=== PATIENT | male | born 1985 | race Caucasian/White ===

== ENCOUNTER 2016-06-17 20:58 | Inpatient (IN) | payer OTHER ==
[~2016-06-17] VITALS: Ht 172.7 cm; Wt 89.5 kg
[2016-06-17 21:22] VITALS: BP 146/91; PULSE 88; RESP 18; TEMP 97.9; O2SAT 99
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
[2016-06-17 22:05] LABS: AUTOMATED NEUTROPHIL # 11.3 TH/MM3 (1.8-7.7); BASOPHIL % 0.3 % (0.0-2.0); EOSINOPHIL % 0.3 % (0.0-4.0); HEMATOCRIT 46.2 % (39.0-51.0); HEMO FLAGS DIFF FINAL; LYMPHOCYTE # 2.5 TH/MM3 (1.0-4.8); MEAN CELL VOLUME 78.5 FL (80.0-100.0); MEAN CORPUSCULAR HEMOGLOBIN 26.7 PG (27.0-34.0); MEAN CORPUSCULAR HGB CONC 33.9 % (32.0-36.0); MONO % 6.8 % (0.0-8.0); NEUT % 75.6 % (16.0-70.0); PLATELET COUNT 215 TH/MM3 (150-450); RED BLOOD COUNT 5.88 MIL/MM3 (4.50-5.90); RED CELL DISTRIBUTION WIDTH 13.4 % (11.6-17.2); WHITE BLOOD COUNT 14.9 TH/MM3 (4.0-11.0)
[2016-06-17 22:25] LABS: ANION GAP 11 MEQ/L (5-15)
[2016-06-17 22:29] LABS: ALKALINE PHOSPHATASE 88 U/L (45-117); ALT (GPT) 52 U/L (12-78); AST (GOT) 28 U/L (15-37); BICARBONATE 26.3 MEQ/L (21.0-32.0); BLOOD UREA NITROGEN 11 MG/DL (7-18); CHLORIDE 103 MEQ/L (98-107); GLOMERULAR FILTRATION RATE 56 ML/MIN (>89); POTASSIUM 3.6 MEQ/L (3.5-5.1); SODIUM (NA) 140 MEQ/L (136-145); TOTAL BILIRUBIN ADULT 0.9 MG/DL (0.2-1.0)
[2016-06-17 23:08] VITALS: BP 153/82; PULSE 108; RESP 18; O2SAT 99
[2016-06-17 23:12] LABS: AMPHETAMINE, URINE NEG (NEG); BARBITURATES, URINE NEG (NEG); COCAINE, URINE NEG (NEG)
[2016-06-17 23:27] VITALS: BP 152/80; PULSE 93; RESP 16; O2SAT 99
[2016-06-18 01:10] VITALS: BP 119/87; PULSE 99; RESP 18; O2SAT 97
[2016-06-18] MEDS ORDERED: LORazepam 2 MG/ML VIAL ONE (01:28)
[2016-06-18] MEDS ORDERED: HALOPERIDOL LACTATE 5 MG/ML AMP ONE (01:29)
[2016-06-18] MEDS ORDERED: HALOPERIDOL LACTATE 5 MG/ML AMP IM ONE (01:30)
[2016-06-18] MEDS ORDERED: LORazepam 2 MG/ML VIAL IM ONE (01:30)
[2016-06-18 02:00] VITALS: BP 130/69; PULSE 126; RESP 16; O2SAT 97
--- NOTE | 2016-06-18 03:30 | PD ---
Physical Exam Date Seen by Provider: Jun 18, 2016 Time Seen by Provider: 03:27 Narrative This is a 31-year-old white male sleeping in seclusion in 4. leather restraints. He has no respiratory distress. He is aroused and responds appropriately. His lungs are clear. Heart is regular. His abdomen is soft and nontender. There is no evidence of trauma. His extremities are without clubbing or cyanosis. Patient is now cooperative. Nursing staff in attendance. Data Data Last Documented VS Vital Signs Date Time Temp Pulse Resp B/P Pulse Ox O2 Delivery O2 Flow Rate FiO2 06/18/16 02:00 126 16 130/69 97 Room Air 06/17/16 21:22 97.9 Orders Complete Blood Count With Diff (06/17/16 21:32) Comprehensive Metabolic Panel (06/17/16 21:32) Drug Screen, Random Urine (06/17/16 21:32) Alcohol (Ethanol) (06/17/16 21:32) Psych Screen (06/17/16 21:32) Haloperidol Inj (Haldol Inj) (06/18/16 01:30) Lorazepam Inj (Ativan Inj) (06/18/16 01:30) Restraints Non-Violent HARRY.Q3H (06/18/16 01:27) Lorazepam Inj (Ativan Inj) (06/18/16 01:28) Haloperidol Inj (Haldol Inj) (06/18/16 01:29) Diet Regular Basic (06/18/16 Breakfast) Labs Laboratory Tests Test 06/17/16 06/17/16 21:55 22:38 White Blood Count 14.9 TH/MM3 Red Blood Count 5.88 MIL/MM3 Hemoglobin 15.7 GM/DL Hematocrit 46.2 % Mean Corpuscular Volume 78.5 FL Mean Corpuscular Hemoglobin 26.7 PG Mean Corpuscular Hemoglobin 33.9 % Concent Red Cell Distribution Width 13.4 % Platelet Count 215 TH/MM3 Mean Platelet Volume 9.7 FL Neutrophils (%) (Auto) 75.6 % Lymphocytes (%) (Auto) 17.0 % Monocytes (%) (Auto) 6.8 % Eosinophils (%) (Auto) 0.3 % Basophils (%) (Auto) 0.3 % Neutrophils # (Auto) 11.3 TH/MM3 Lymphocytes # (Auto) 2.5 TH/MM3 Monocytes # (Auto) 1.0 TH/MM3 Eosinophils # (Auto) 0.0 TH/MM3 Basophils # (Auto) 0.0 TH/MM3 CBC Comment DIFF FINAL Differential Comment Sodium Level 140 MEQ/L Potassium Level 3.6 MEQ/L Chloride Level 103 MEQ/L Carbon Dioxide Level 26.3 MEQ/L Anion Gap 11 MEQ/L Blood Urea Nitrogen 11 MG/DL Creatinine 1.45 MG/DL Estimat Glomerular Filtration 56 ML/MIN Rate Random Glucose 85 MG/DL Calcium Level 9.1 MG/DL Total Bilirubin 0.9 MG/DL Aspartate Amino Transf 28 U/L (AST/SGOT) Alanine Aminotransferase 52 U/L (ALT/SGPT) Alkaline Phosphatase 88 U/L Total Protein 8.0 GM/DL Albumin 4.6 GM/DL Ethyl Alcohol Level LESS THAN 3 MG/DL Urine Opiates Screen NEG Urine Barbiturates Screen NEG Urine Amphetamines Screen NEG Urine Benzodiazepines Screen NEG Urine Cocaine Screen NEG Urine Cannabinoids Screen NEG MDM Medical Record Reviewed: Yes Supervised Visit with SHERRY: Yes Interpretation(s) Laboratory Tests Test 06/17/16 06/17/16 21:55 22:38 White Blood Count 14.9 TH/MM3 Red Blood Count 5.88 MIL/MM3 Hemoglobin 15.7 GM/DL Hematocrit 46.2 % Mean Corpuscular Volume 78.5 FL Mean Corpuscular Hemoglobin 26.7 PG Mean Corpuscular Hemoglobin 33.9 % Concent Red Cell Distribution Width 13.4 % Platelet Count 215 TH/MM3 Mean Platelet Volume 9.7 FL Neutrophils (%) (Auto) 75.6 % Lymphocytes (%) (Auto) 17.0 % Monocytes (%) (Auto) 6.8 % Eosinophils (%) (Auto) 0.3 % Basophils (%) (Auto) 0.3 % Neutrophils # (Auto) 11.3 TH/MM3 Lymphocytes # (Auto) 2.5 TH/MM3 Monocytes # (Auto) 1.0 TH/MM3 Eosinophils # (Auto) 0.0 TH/MM3 Basophils # (Auto) 0.0 TH/MM3 CBC Comment DIFF FINAL Differential Comment Sodium Level 140 MEQ/L Potassium Level 3.6 MEQ/L Chloride Level 103 MEQ/L Carbon Dioxide Level 26.3 MEQ/L Anion Gap 11 MEQ/L Blood Urea Nitrogen 11 MG/DL Creatinine 1.45 MG/DL Estimat Glomerular Filtration 56 ML/MIN Rate Random Glucose 85 MG/DL Calcium Level 9.1 MG/DL Total Bilirubin 0.9 MG/DL Aspartate Amino Transf 28 U/L (AST/SGOT) Alanine Aminotransferase 52 U/L (ALT/SGPT) Alkaline Phosphatase 88 U/L Total Protein 8.0 GM/DL Albumin 4.6 GM/DL Ethyl Alcohol Level LESS THAN 3 MG/DL Urine Opiates Screen NEG Urine Barbiturates Screen NEG Urine Amphetamines Screen NEG Urine Benzodiazepines Screen NEG Urine Cocaine Screen NEG Urine Cannabinoids Screen NEG Differential Diagnosis MDM: High Differential diagnoses: Schizophrenia, schizoaffective disorder, bipolar, anxiety, depression, adjustment reaction, mood disorder NOS, ODD, depressive disorder NOS, dementia, dementia with agitation, psychosis NOS, substance induced mood disorder, intermittent explosive disorder, Asperger syndrome, infection,electrolyte abnormality, malingering. Narrative Course I was notified at approximately 03:10 AM that the above patient had been placed in restraints by Dr. Hughes. I was asked to come down and perform post restraint exam. This has been performed. The patient appears comfortable and appropriate. Nursing staff have been advised to take the patient out of restraints. Scripts Unable to Obtain Active Prescriptions or Reported Meds Condition: Young Gordon Jun 18, 2016 03:30
[2016-06-18 06:10] VITALS: BP 133/71; PULSE 94; RESP 18; O2SAT 99
[2016-06-18] MEDS ORDERED: LORazepam 1 MG TAB PO PRN (10:30)
[2016-06-18] MEDS ORDERED: ALUMINUM/MAGNESIUM/SIMETH 30 ML CUP PO PRN (10:30)
[2016-06-18] MEDS ORDERED: MAGNESIUM HYDROXIDE SUSP 30 ML CUP PO PRN (10:30)
[2016-06-18] MEDS ORDERED: LORazepam 2 MG/ML VIAL IM PRN (10:30)
[2016-06-18] MEDS ORDERED: ACETAMINOPHEN 325 MG TAB PO PRN (10:30)
[2016-06-18 13:20] VITALS: BP 123/75; PULSE 105; RESP 18; TEMP 98.5; O2SAT 99
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
[2016-06-18 20:58] VITALS: BP 124/76; PULSE 125; RESP 18; TEMP 99; O2SAT 99
[2016-06-19 05:36] VITALS: BP 97/63; PULSE 73; RESP 18; TEMP 99.3; O2SAT 95
[2016-06-19 08:13] LABS: AUTOMATED NEUTROPHIL # 6.5 TH/MM3 (1.8-7.7); BASOPHIL % 0.2 % (0.0-2.0); EOSINOPHIL # 0.1 TH/MM3 (0-0.4); EOSINOPHIL % 1.2 % (0.0-4.0); HEMATOCRIT 49.1 % (39.0-51.0); HEMO FLAGS DIFF FINAL; LYMPHOCYTE # 2.4 TH/MM3 (1.0-4.8); MEAN CELL VOLUME 79.9 FL (80.0-100.0); MEAN CORPUSCULAR HEMOGLOBIN 26.6 PG (27.0-34.0); MEAN CORPUSCULAR HGB CONC 33.3 % (32.0-36.0); MONO % 6.9 % (0.0-8.0); NEUT % 66.7 % (16.0-70.0); PLATELET COUNT 218 TH/MM3 (150-450); RED BLOOD COUNT 6.15 MIL/MM3 (4.50-5.90); RED CELL DISTRIBUTION WIDTH 13.5 % (11.6-17.2); WHITE BLOOD COUNT 9.8 TH/MM3 (4.0-11.0)
[2016-06-19 08:44] LABS: ANION GAP 10 MEQ/L (5-15); BLOOD UREA NITROGEN 15 MG/DL (7-18); CHLORIDE 103 MEQ/L (98-107); GLOMERULAR FILTRATION RATE 51 ML/MIN (>89); LDL CHOLESTEROL 108 MG/DL (0-99); POTASSIUM 3.7 MEQ/L (3.5-5.1); SODIUM (NA) 139 MEQ/L (136-145)
[2016-06-19] MEDS: NICOTINE 21 MG/24 HR PATCH T-DERMAL SCH (09:00)
--- NOTE | 2016-06-19 13:57 | PD.CONS ---
Provisional Diagnosis Admission Date Jun 18, 2016 at 09:43 [place] I. 1. Adjustment disorder, unspecified Rule out bipolar depression or perhaps unipolar depression 2. Posttraumatic stress disorder, chronic [place] II. Deferred [place] V. GAF is 30 presently History of Present Illness Service Psychiatry Consult Requested By psychiatry Reason for Consult 2nd opinion Primary Care Physician Unknown HPI Pt seen and discussed with staff. Chart reviewed. Pt is a 31YOM with a hx of PTSD and service who presents on a BA after attempting to jump off a bridge. While in ED, he was agitated and psychotic and attempted to elope from ED. Latter he attemped to hang self with a sheet in ED. Pt states that he has been receiving treatment from OR off and on. He states that medication has not helped and he is not going to take any treatment anymore. He minimizes suicide attempts and states that he just had a bad day. He request paperwork to request release from hospital. He admits to hx of poor sleep, racing thoughts with depression and periods of elevated mood. He denies SI/HI and is focused on discharge. He is guarded during interview and focuses on discharge. Review of Systems Psychiatric: COMPLAINS OF: Anxiety, Mood changes, Depression Past Family Social History Coded Allergies: No Known Allergies (Unverified , 06/18/16) Past Medical History PTSD Unable to Obtain Active Prescriptions or Reported Meds Current Medications Medications (Trade) Dose Ordered Sig/Elena Route Start Time Stop Time Status Last Admin (Ativan) 1 mg Q6H PRN PO 06/18/16 10:30 (Ativan Inj) 1 mg Q6H PRN IM 06/18/16 10:30 (Tylenol) 650 mg Q4H PRN PO 06/18/16 10:30 (Milk Of Magnesia Liq) 30 ml DAILY PRN PO 06/18/16 10:30 (Mag-Al Plus Susp Liq) 30 ml Q6H PRN PO 06/18/16 10:30 (Habitrol 21 Mg Patch.24 Hr) 1 patch DAILY T-DERMAL 06/19/16 09:00 Miscellaneous Information 1 HS T-DERMAL 06/19/16 21:00 Family History denies psych hx Social History [place], lives alone, gun in home Patient's Strengths (min. 2) Intelligent. Verbally fluent. Physical Exam see ED Vital Signs Vital Signs Date Time Temp Pulse Resp B/P Pulse Ox O2 Delivery O2 Flow Rate FiO2 06/19/16 05:36 99.3 73 18 97/63 95 06/18/16 06:10 Room Air Mental Status Examination Speech: Unremarkable Orientation: x3 Memory: Unremarkable Thought Process: Linear Thought Content: Unremarkable Hallucination Type: None Suicidal Ideation: No (Pt denies, but has had two recent suicide attempts one in ED yesterday) Previous Suicide Attempts: Yes Homicidal Ideation: No Insight: Poor Judgement: Impulsive, Poor Affect: Sad Affect if Inappropriate: Flat Mood: Sad, Anxious Motor Activity: Normal gait Assessment & Plan Problem List: (1) Adjustment disorder ICD Code: F43.20 (2) Post-traumatic stress disorder, chronic ICD Code: F43.12 Assessment & Plan Pt is at high risk for suicide. He attempted suicide twice yesterday. He is refusing treatment and insight is poor. He meets criteria for involuntary hospitalization. 2nd opinion paperwork completed. Estimated LOS: days Request HC Surrog/Guard Advoc?: No Problem Qualifiers (1) Adjustment disorder: Qualified Code: F43.20 - Adjustment disorder, unspecified type Milena Avery MD Jun 19, 2016 13:57
[2016-06-19 14:24] LABS: HEMOGLOBIN A1b 1.1 %; HEMOGLOBIN Ao 85.7 %; HEMOGLOBIN F 0.7 %; HEMOGLOBIN LA1C 1.7 %; HEMOGLOBIN P3 3.5 %
[2016-06-19 19:46] VITALS: BP 153/77; PULSE 104; RESP 18; TEMP 97; O2SAT 99
[2016-06-19] MEDS: REMOVE OLD NICOTINE PATCH T-DERMAL SCH (21:00)
[2016-06-20 06:30] VITALS: BP 111/72; PULSE 83; RESP 17; TEMP 97.7; O2SAT 98
[2016-06-20] MEDS: NICOTINE 21 MG/24 HR PATCH T-DERMAL SCH (09:00)
--- NOTE | 2016-06-20 14:53 | HHI.PYPN ---
Subjective Remarks Pt seen and discussed with staff. Pt has been sleeping most of the day. He continues to refuse medications, today stating that he does not feel comfortable with not talking to his outpatient psychiatrist first. He continues to minimize suicide attempts and depression symptoms. He denies SI/HI today and states that he is ready for discharge. Objective Alert: Yes [place]: Person, Date, Situation Mood: Depressed Affect: Restricted Memory Intact: Immediate, Recent, Remote Hallucinations: Other (none) Delusions: No Delusion Type: Other (none) Suicidal: Ideation (denies) Homicidal: Ideation (denies) Insight/Judgement poor Vitals/IOs Vital Signs Date Time Temp Pulse Resp B/P Pulse Ox O2 Delivery O2 Flow Rate FiO2 06/20/16 06:30 97.7 83 17 111/72 98 06/18/16 06:10 Room Air Assessment & Plan Problem List: (1) Adjustment disorder ICD Code: F43.20 (2) Post-traumatic stress disorder, chronic ICD Code: F43.12 Assessment & Plan Continue to observe for safety. Continue to encourage tx compliance. Estimated LOS: days Justification for Cont. Inpt. impairments in safety Request HC Surrog/Guard Advoc?: No Problem Qualifiers (1) Adjustment disorder: Qualified Code: F43.20 - Adjustment disorder, unspecified type Milena Avery MD Jun 20, 2016 14:53
[2016-06-20 19:30] VITALS: BP 111/71; PULSE 95; RESP 16; TEMP 98; O2SAT 98
[2016-06-20] MEDS: REMOVE OLD NICOTINE PATCH T-DERMAL SCH (21:00)
[2016-06-21 05:48] VITALS: BP 120/79; PULSE 91; RESP 18; TEMP 97.9; O2SAT 99
[2016-06-21] MEDS: NICOTINE 21 MG/24 HR PATCH T-DERMAL SCH (09:00)
--- NOTE | 2016-06-21 10:49 | HHI.PYPN ---
Subjective Remarks Patient seen and examined with counselor. Chart reviewed. Case discussed with nursing staff. On my examination today, the patient denies any suicidal or homicidal ideation. He says that over the weekend he reflected on the conduct that led to him being psychiatrically admitted. He now thinks that his presenting psychiatric symptomatology was due to some recent medication changes him although when I evaluated him before the weekend he denied taking any psychotropic medications whatsoever. He now thinks he may have been on some Lunesta and other psychotropics the names of which he is not sure. In any event , the patient says that these medication changes caused some sort of psychiatric disturbance. He says that if he had thought more about it he might of called the [place] crisis line but instead he proceeded to the bridge to pretend to jump off because he knew that people often drink there and he would be noticed. He says that his hope was to come to medical attention. Unclear why he didn't simply percent directly to the emergency room. When I asked why then he tried to strangle himself in the psychiatric emergency room he said that he needed some water and he didn't receive some immediately and this was the only way he could think of to get a glass of water. Presently, he feels like he is at his psychiatric baseline. Review of Systems Other No physical complaints today Objective Alert: Yes [place]: Person, Place, Date Mood: Calm Affect: Blunted Memory Intact: Comment (seems at least fair on clinical exam) Hallucinations: Other (no AVH) Delusions: No Delusion Type: Other (no delusions) Suicidal: Ideation (denies suicidal ideation) Homicidal: Ideation (denies homicidal ideation) Insight/Judgement Unclear at present Remarks No motoric abnormalities noted Labs Labs reviewed. No new labs. I do notice that patient's GFR seemed to worsen somewhat over the weekend. Vitals/IOs Vital Signs Date Time Temp Pulse Resp B/P Pulse Ox O2 Delivery O2 Flow Rate FiO2 06/21/16 05:48 97.9 91 18 120/79 99 06/18/16 06:10 Room Air Assessment & Plan Problem List: (1) Adjustment disorder ICD Code: F43.20 (2) Post-traumatic stress disorder, chronic ICD Code: F43.12 Assessment & Plan Patient presents a convoluted and, to my mind, somewhat incredible rationale for his behavior prior to admission and in the emergency room. Before the weekend, he had said that he simply had eaten some bad oysters. He additionally now says that he takes multiple psychotropic medications were before he had said that he takes none. I will request a medication list from the [place]. I have asked that a counselor to obtain several different lines of collateral if possible to try to stratify his risk. I will additionally ask the hospitalist to see the patient for his decreased GFR. There has been no evidence of further self injury but I will continue the one-to-one and out of an abundance of caution until we have taken the above steps and reevaluate at that time. Justification for Cont. Inpt. Concern for impairment in safety Discharge Planning Pending above. Request HC Surrog/Guard Advoc?: No Problem Qualifiers (1) Adjustment disorder: Qualified Code: F43.20 - Adjustment disorder, unspecified type Thanh Peace MD Jun 21, 2016 10:49
--- NOTE | 2016-06-21 13:46 | PD.CONS ---
HPI Service [facility] Consult Requested By Dr Campbell Primary Care Physician Unknown Diagnoses: History of Present Illness This is a 51-year-old male with a significant history of diabetes, hypertension or hyperlipidemia who presents to [facility] brought in by the police after he was found trying to jump off the [facility]. Agent has history of psychiatric disorder for which she was taking some medications. The patient states that recently approximately 2 weeks ago his doctor change his medication. He states that he believes he was started on Seroquel and then he started not feeling himself and not feeling right. He states he had decreased appetite, and nausea with vomiting for several times which he did prior to admission. The patient denies however melena, chest pain, shortness of breath, fevers, chills, dizziness. As per records the patient was brought him by the police to the emergency department and while he was waiting to be hospitalized, the patient tried to hang himself with a white sheet. The patient states that he did not want to commit suicide, however he did want her to call the medical attention, that is why he went to the [facility] where he noted was cannot be people at the time who will call the police. When asked about why he tried to hang himself in the emergency department, he said that he was feeling very thirsty and dehydrated and that nobody was paying attention to him, so this was a way to do so. The patient currently denies any suicidal ideation, states that he had medical follow-up at the [facility] recently in less than a month and he was told by the physician there that his kidneys were working slower than normal. He does not however remember any specific creatinine or GFR. Review of Systems Other Other systems reviewed by me and negative Past Family Social History Allergies: Coded Allergies: No Known Allergies (Unverified , 06/18/16) Past Medical History 1. History of CKD 2. Denies history of diabetes, hypertension or hyperlipidemia. Past Surgical History Denies Reported Medications None Active Ordered Medications Current Medications Medications (Trade) Dose Ordered Sig/Elena Route Start Time Stop Time Status Last Admin (Ativan) 1 mg Q6H PRN PO 06/18/16 10:30 (Ativan Inj) 1 mg Q6H PRN IM 06/18/16 10:30 (Tylenol) 650 mg Q4H PRN PO 06/18/16 10:30 (Milk Of Magnesia Liq) 30 ml DAILY PRN PO 06/18/16 10:30 (Mag-Al Plus Susp Liq) 30 ml Q6H PRN PO 06/18/16 10:30 (Habitrol 21 Mg Patch.24 Hr) 1 patch DAILY T-DERMAL 06/19/16 09:00 Miscellaneous Information 1 HS T-DERMAL 06/19/16 21:00 Family History Patient denies any family history of kidney problems. Denies early CAD. Social History The patient denies drinking alcohol. The patient states that he smokes on rare occasions when he stressed out. Denies illicit drug use. The patient is single, has no children and lives by himself. Physical Exam Vital Signs Vital Signs Date Time Temp Pulse Resp B/P Pulse Ox O2 Delivery O2 Flow Rate FiO2 06/21/16 05:48 97.9 91 18 120/79 99 06/20/16 19:30 98.0 95 16 111/71 98 Physical Exam GENERAL: This is a well-nourished, well-developed patient, in no apparent distress. SKIN: No rashes, ecchymoses or lesions. Cool and dry. HEAD: Atraumatic. Normocephalic. No temporal or scalp tenderness. EYES: Pupils equal round and reactive. Extraocular motions intact. No scleral icterus. No injection or drainage. ENT: Nose without bleeding, purulent drainage or septal hematoma. Throat without erythema, tonsillar hypertrophy or exudate. Uvula midline. Airway patent. NECK: Trachea midline. No JVD or lymphadenopathy. Supple, nontender, no meningeal signs. CARDIOVASCULAR: Regular rate and rhythm without murmurs, gallops, or rubs. RESPIRATORY: Clear to auscultation. Breath sounds equal bilaterally. No wheezes , rales, or rhonchi. GASTROINTESTINAL: Abdomen soft, non-tender, nondistended. No hepato-splenomegaly , or palpable masses. No guarding. MUSCULOSKELETAL: Extremities without clubbing, cyanosis, or edema. No joint tenderness, effusion, or edema noted. No calf tenderness. Negative Homans sign bilaterally. NEUROLOGICAL: Awake and alert. Cranial nerves II through XII intact. Motor and sensory grossly within normal limits. Five out of 5 muscle strength in all muscle groups. Normal speech. Result Diagram: 06/19/1671606/19/16716 Assessment and Plan Problem List: (1) Adjustment disorder ICD Code: F43.20 Status: Acute Plan: Management as per psychiatry. The patient currently on lorazepam. (2) Post-traumatic stress disorder, chronic ICD Code: F43.12 Status: Chronic Plan: Management as per psychiatry. (3) CRIS (acute kidney injury) ICD Code: N17.9 Status: Acute Plan: Patient presents with increased creatinine of 1.45 and BUN of 11 which increased to 1.5 815. Patient elicits history of a chronic kidney disease, however we do not have any old records or laboratory results to which we can compare the creatinine to. Suspect slight worsening of creatinine is due to dehydration and prerenal azotemia. I will check a renal ultrasound, check urine sodium. Recommended the patient to drink plenty of fluids. Continue to monitor BUN/creatinine, strict I's and O's, avoid nephrotoxins. (4) Leukocytosis ICD Code: D72.829 Status: Resolved Plan: Leukocytosis resolved. Likely elevated initially due to stress. On admission the patient's WBC was 14.9 it is now down to 9.8. I will check urinalysis. (5) Hematemesis ICD Code: K92.0 Status: Resolved Plan: There is reported and documented hematemesis. Likely mild white stair from nausea and vomiting. No further results of hematemesis. Continue to monitor CBC. Hemoglobin stable. (6) Smoking ICD Code: F17.200 Status: Acute Plan: Advised smoking cessation. On nicotine patch. Assessment and Plan GI prophylaxis: Add proton pump inhibitor DVT prophylaxis: Encourage ambulation. Code Status Full code Discussed Condition With Patient, RN. Problem Qualifiers (1) Adjustment disorder: Qualified Code: F43.20 - Adjustment disorder, unspecified type (2) Leukocytosis: Qualified Code: D72.829 - Leukocytosis, unspecified type (3) Hematemesis: Qualified Code: K92.0 - Hematemesis without nausea Sathya Jenkins MD Jun 21, 2016 13:46
[2016-06-21] MEDS: PANTOPRAZOLE SOD 40 MG DELAYED RELEASE TAB PO SCH (16:00)
--- NOTE | 2016-06-21 17:09 | RADRPT ---
EXAM DATE/TIME: 06/21/2016 16:20 [place] COMPARISON: No previous studies available for comparison. INDICATIONS : Increased BUN/creatinine. MEDICAL HISTORY : Mood disorders. Violent behavior. Previous suicide attempt. Depression. Anxiety. SURGICAL HISTORY : None. ENCOUNTER: Initial ACUITY: 1 day PAIN SCORE: 0/10 LOCATION: Bilateral flank MEASUREMENTS: RIGHT KIDNEY: 10.9 x 5.5 x 5.1 cm LEFT KIDNEY: 11.0 x 4.8 x 5.4 cm FINDINGS: RIGHT KIDNEY: Renal cortex is normal in thickness and echotexture. No hydronephrosis, stone, or mass. LEFT KIDNEY: Renal cortex is normal in thickness and echotexture. No hydronephrosis, stone, or mass. BLADDER: Within normal limits given the degree of distension. CONCLUSION: Normal examination. Vinicius Ochoa MD on June 21, 2016 at 17:07 Board Certified Radiologist. This report was verified electronically.
[2016-06-21 20:30] VITALS: BP 135/90; PULSE 98; RESP 18; TEMP 97.6; O2SAT 99
[2016-06-21] MEDS: REMOVE OLD NICOTINE PATCH T-DERMAL SCH (21:00)
[2016-06-22 06:24] VITALS: BP 138/80; PULSE 86; RESP 18; TEMP 97.4; O2SAT 100
[2016-06-22] MEDS: PANTOPRAZOLE SOD 40 MG DELAYED RELEASE TAB PO SCH (09:02)
[2016-06-22] MEDS ORDERED: ESCITALOPRAM OXALATE 10 MG TAB PO ONE (11:30)
--- NOTE | 2016-06-22 11:37 | HHI.PYPN ---
Subjective Remarks Patient seen and examined with counselor and occupational therapist in treatment team. Chart reviewed. Case discussed with nursing staff and treatment team. No episodes of any behavioral disturbance on the inpatient unit. On my examination today, the patient is significantly more forthcoming. We [facility] and I have reviewed this with him in great detail. He was apparently taking Lexapro 20 mg daily, Klonopin 0.5 mg 3 times daily, Lunesta 3 mg at bedtime and was also prescribed a maximal dose of Latuda any substantial dose of Seroquel. The patient expresses a great degree of trepidation about the antipsychotics and notes that he experienced significant lockjaw from the Latuda and other side effects from the Seroquel. He believes that it is the dose titration of the Seroquel recently that caused his decompensation leading to hospitalization. He says that he has raised these concerns with his outpatient psychiatrist but his treating provider has changed so off and on an outpatient basis that he hasn 't felt that he has someone he can work with and that he can trust. Patient describes significant amount of ongoing posttraumatic stress symptoms, noting that he has a great degree of anxiety functioning in normal society as a result. He also describes some hallucinations that sound more consistent with traumatic phenomena than with psychosis. He denies any command auditory hallucinations. He has tried to get [facility] a [facility] namely [facility] but has reportedly left messages to no avail. He does not describe SI or HI presently but is fairly tearful and dysphoric. Patient apparently had a visit from his parents last night, and contact information was obtained. Patient signs consent for us to speak with his parents, and the counselor will do this. Extensive discussion with patient regarding psychopharmacologic treatment strategies going forward. We agreed to resume his Lexapro, Klonopin and Lunesta to ensure good tolerability of these agents. We discussed strategies going forward thereafter, and we might consider pursuing something to blunt adrenergic drive. Review of Systems Other No reported physical complaints today Objective Alert: Yes [place]: Person, Place, Date Mood: Anxious Affect: Restricted (dysphoric, tearful) Memory Intact: Comment (seems intact on clinical exam) Hallucinations: Other (no AVH currently but says that he has experienced visual phenomenon more yanely to a flashback when stressed and auditory phenomena when on the antipsychotics.) Delusions: No Delusion Type: Other (no evident delusional material) Suicidal: Ideation (no SI voiced) Homicidal: Ideation (no HI voiced) Insight/Judgement Seems improved versus admission Remarks No abnormal motor movements noted. Thought process linear. Speech within normal limits for rate, tone and volume. Labs Labs reviewed. No new labs. Vitals/IOs Vital Signs Date Time Temp Pulse Resp B/P Pulse Ox O2 Delivery O2 Flow Rate FiO2 06/22/16 06:24 97.4 86 18 138/80 100 Intake and Output 06/21/16 06/21/16 06/22/16 08:00 16:00 00:00 Intake Total 480 ml Balance 480 ml Assessment & Plan Problem List: (1) Adjustment disorder ICD Code: F43.20 (2) Post-traumatic stress disorder, chronic ICD Code: F43.12 Assessment & Plan Resume Lexapro, starting with a lower dose today and increasing to 20 mg dose tomorrow. Resume Lunesta and Klonopin. To consider adding an adrenergic bebe. Counselor to reach out to family for collateral and also to refer patient to outpatient intensive psychotherapy through the [facility]. I will continue the modified one-to-one for now, but we could consider discontinuing this tomorrow. Patient may consent for medications but remains on involuntary status. Justification for Cont. Inpt. Monitoring for impairments in safety and reality construction. Medication changes. Discharge Planning Pending psychiatric stabilization. Request HC Surrog/Guard Advoc?: No Problem Qualifiers (1) Adjustment disorder: Qualified Code: F43.20 - Adjustment disorder, unspecified type Thanh Peace MD Jun 22, 2016 11:36
[2016-06-22] MEDS: clonazePAM 0.5 MG TAB PO SCH ×2 (13:28→17:49)
[2016-06-22 16:56] LABS: ANION GAP 6 MEQ/L (5-15); AST (GOT) 26 U/L (15-37); BICARBONATE 27.7 MEQ/L (21.0-32.0); BLOOD UREA NITROGEN 9 MG/DL (7-18); CHLORIDE 104 MEQ/L (98-107); GLOMERULAR FILTRATION RATE 68 ML/MIN (>89); POTASSIUM 3.8 MEQ/L (3.5-5.1); SODIUM (NA) 138 MEQ/L (136-145)
[2016-06-22 16:59] LABS: ALKALINE PHOSPHATASE 82 U/L (45-117); ALT (GPT) 69 U/L (12-78); TOTAL BILIRUBIN ADULT 0.4 MG/DL (0.2-1.0)
[2016-06-22 18:50] VITALS: BP 136/83; PULSE 88; RESP 18; TEMP 96.6; O2SAT 100
[2016-06-22] MEDS: ESZOPICLONE 3 MG TAB PO SCH (21:50)
[2016-06-23 05:36] VITALS: BP 112/74; PULSE 78; RESP 18; TEMP 97.9; O2SAT 98
[2016-06-23] MEDS: ESCITALOPRAM OXALATE 20 MG TAB PO SCH (09:09)
[2016-06-23] MEDS: PANTOPRAZOLE SOD 40 MG DELAYED RELEASE TAB PO SCH (09:09)
[2016-06-23] MEDS: clonazePAM 0.5 MG TAB PO SCH ×3 (09:09→18:14)
--- NOTE | 2016-06-23 12:16 | HHI.PYPN ---
Subjective Remarks Patient seen and examined with counselor. Chart reviewed. Case discussed with nursing staff. No behavioral incident noted. On my examination today, the patient reports that he slept well overnight and denies any suicidal or homicidal ideation. He is presently kristie for safety. He denies side effects from psychotropics and is pleased to be back on his core regimen of Lexapro, Lunesta and Klonopin. We discussed strategies for managing his ongoing psychiatric symptoms. He says that the most troublesome symptom is hypervigilance related to his posttraumatic stress disorder. He says that, in his interaction with other people, he is constantly assigning them a threat value in his head, which he likens to a 1-10 pain scale. He says that this hypervigilance produces a physical sensation of anxiety that is extremely unpleasant, and it is here that he would like to focus further treatment presently. He has tried prazosin in the past but was unable to tolerate it. We discussed the risks and benefits of a beta bebe, and the patient is agreeable to a trial of such an agent. Review of Systems Other No reported physical complaints Objective Alert: Yes [place]: Person, Place, Date Mood: Anxious Affect: Blunted Memory Intact: Comment (intact) Hallucinations: Other (no AVH) Delusions: No Delusion Type: Other (no delusions) Suicidal: Ideation (denies suicidal ideation) Homicidal: Ideation (denies homicidal ideation) Insight/Judgement Fair Remarks No motoric abnormalities noted. Thought process linear. Speech within normal limits for rate, tone and volume. Labs Test 06/22/16 16:20 Sodium Level 138 MEQ/L Potassium Level 3.8 MEQ/L Chloride Level 104 MEQ/L Carbon Dioxide Level 27.7 MEQ/L Anion Gap 6 MEQ/L Blood Urea Nitrogen 9 MG/DL Creatinine 1.22 MG/DL Estimat Glomerular Filtration 68 ML/MIN Rate Random Glucose 89 MG/DL Calcium Level 9.3 MG/DL Total Bilirubin 0.4 MG/DL Aspartate Amino Transf 26 U/L (AST/SGOT) Alanine Aminotransferase 69 U/L (ALT/SGPT) Alkaline Phosphatase 82 U/L Total Protein 7.9 GM/DL Albumin 4.4 GM/DL Labs reviewed. GFR improving. Vitals/IOs Vital Signs Date Time Temp Pulse Resp B/P Pulse Ox O2 Delivery O2 Flow Rate FiO2 1/11/17 05:36 97.9 78 18 112/74 98 Assessment & Plan Problem List: (1) Adjustment disorder ICD Code: F43.20 (2) Post-traumatic stress disorder, chronic ICD Code: F43.12 Assessment & Plan Add low dose Inderal with blood pressure parameters. I have emphasized that this is an off label use of the drug in my discussion of the risks and benefits. I also highlight that it is an antihypertensive with the attendant risks of symptomatic hypotension. Continue other psychotropics as ordered. Continue other medications and care as ordered. Discontinue one-to-one and placed on close observation with off unit privileges. Patient may sign voluntary. Justification for Cont. Inpt. Medication adjustments. Risk for decompensation. Discharge Planning Pending psychiatric stabilization Request HC Surrog/Guard Advoc?: No Problem Qualifiers (1) Adjustment disorder: Qualified Code: F43.20 - Adjustment disorder, unspecified type Thanh Peace MD Jun 23, 2016 12:16
[2016-06-23] MEDS: PROPRANOLOL HCL 10 MG TAB PO SCH ×2 (13:33→18:14)
--- NOTE | 2016-06-23 16:49 | HHI.PR ---
Subjective Remarks Follow-up acute kidney injury. Patient reports feeling well reports good amount of urine output tolerating increase fluids. Offers no specific complaints at this time Objective Vitals Vital Signs Date Time Temp Pulse Resp B/P Pulse Ox O2 Delivery O2 Flow Rate FiO2 06/23/16 05:36 97.9 78 18 112/74 98 06/22/16 18:50 96.6 88 18 136/83 100 Result Diagram: 06/19/16 0717 06/22/16 1620 Imaging Last Impressions Renal Ultrasound 06/21/16 0000 Signed Impressions: Service Date/Time: Tuesday, June 21, 2016 16:20 - CONCLUSION: Normal examination. Vinicius Ochoa MD Objective Remarks GENERAL: This is a well-nourished, well-developed patient, in no apparent distress. SKIN: No rashes, ecchymoses or lesions. Cool and dry. HEAD: Atraumatic. Normocephalic. No temporal or scalp tenderness. EYES: Extraocular motions intact. No scleral icterus. No injection or drainage. ENT: Nose without bleeding, purulent drainage or septal hematoma. Throat without erythema, tonsillar hypertrophy or exudate. Uvula midline. Airway patent. NECK: Trachea midline. No JVD or lymphadenopathy. Supple, nontender, no meningeal signs. CARDIOVASCULAR: Regular rate and rhythm without murmurs, gallops, or rubs. RESPIRATORY: Clear to auscultation. Breath sounds equal bilaterally. No wheezes , rales, or rhonchi. GASTROINTESTINAL: Abdomen soft, non-tender, nondistended. No guarding. MUSCULOSKELETAL: Extremities without clubbing, cyanosis, or edema. No joint tenderness, effusion, or edema noted. No calf tenderness. Negative Homans sign bilaterally. NEUROLOGICAL: Awake and alert. Motor and sensory grossly within normal limits. Five out of 5 muscle strength in all muscle groups. Normal speech. A/P Problem List: (1) Adjustment disorder ICD Code: F43.20 Status: Acute Plan: Management as per psychiatry. The patient currently on lorazepam. (2) Post-traumatic stress disorder, chronic ICD Code: F43.12 Status: Chronic Plan: Management as per psychiatry. (3) CRIS (acute kidney injury) ICD Code: N17.9 Status: Acute Plan: Patient elicits history of a chronic kidney disease, however we do not have any old records or laboratory results to which we can compare the creatinine to. Suspect slight worsening of creatinine is due to dehydration and prerenal azotemia. renal ultrasound reviewed as a normal exam. Recommended the patient to drink plenty of fluids. avoid nephrotoxins. (4) Leukocytosis ICD Code: D72.829 Status: Resolved Plan: Leukocytosis resolved. Likely elevated initially due to stress. On admission the patient's WBC was 14.9 it is now down to 9.8. (5) Hematemesis ICD Code: K92.0 Status: Resolved (6) Smoking ICD Code: F17.200 Status: Acute Plan: Advised smoking cessation. On nicotine patch. Assessment and Plan Patient appears medically stable we'll sign off if patient's condition changes or further assistance is needed please consult. Recommend patient continue oral hydration and follow up with PCP after discharge Written by Ana Ta, acting as scribe for Dr. Wall on 06/23/16 at 16:49. Attending Statement The documentation accurately reflects the work performed [id number] by me on at 16:49. Problem Qualifiers (1) Adjustment disorder: Qualified Code: F43.20 - Adjustment disorder, unspecified type (2) Leukocytosis: Qualified Code: D72.829 - Leukocytosis, unspecified type (3) Hematemesis: Qualified Code: K92.0 - Hematemesis without nausea Ana Ta Jun 23, 2016 16:49 Sathya Jenkins MD Jul 11, 2016 10:29
[2016-06-23 18:00] VITALS: BP 111/59; PULSE 60; RESP 17; TEMP 98; O2SAT 98
[2016-06-23] MEDS: ESZOPICLONE 3 MG TAB PO SCH (21:47)
[2016-06-24 05:00] VITALS: BP 110/77; PULSE 80; RESP 18; TEMP 97.6; O2SAT 94
[2016-06-24] MEDS: PROPRANOLOL HCL 10 MG TAB PO SCH ×3 (09:07→18:00)
[2016-06-24] MEDS: clonazePAM 0.5 MG TAB PO SCH ×3 (09:07→18:00)
[2016-06-24] MEDS: PANTOPRAZOLE SOD 40 MG DELAYED RELEASE TAB PO SCH (09:07)
[2016-06-24] MEDS: ESCITALOPRAM OXALATE 20 MG TAB PO SCH (09:08)
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
[2016-06-24 12:55] VITALS: BP 130/76; PULSE 86; RESP 18; TEMP 98; O2SAT 96
[2016-06-24] MEDS: ESZOPICLONE 3 MG TAB PO SCH (21:57)
[2016-06-25 06:25] VITALS: BP 131/80; PULSE 78; RESP 16; TEMP 98.1
[2016-06-25] MEDS: clonazePAM 0.5 MG TAB PO SCH (08:55)
[2016-06-25] MEDS: PANTOPRAZOLE SOD 40 MG DELAYED RELEASE TAB PO SCH (08:55)
[2016-06-25] MEDS: ESCITALOPRAM OXALATE 20 MG TAB PO SCH (08:55)
[2016-06-25] MEDS: PROPRANOLOL HCL 10 MG TAB PO SCH (09:00)
[2016-06-25] MEDS ORDERED: PROP10TA6 PO ×2 (09:49→10:45)
[2016-06-25] MEDS ORDERED: ESCI20TA PO (09:49)
[2016-06-25] MEDS ORDERED: ESZO3TAB4 PO (09:49)
[2016-06-25] MEDS ORDERED: CLON.5 PO (09:49)
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
== END 2016-06-25 12:16 | disposition home or self-care (01) | DRG 882 ==
LOC: NEPC 20:58 → NEDA 06-18 09:43 → H270 06-18 10:40 → H260 06-24 14:52
PROVIDERS: ADMIT Psychiatry & Neurology Psychiatry; ATTEND Psychiatry & Neurology Psychiatry
DX: F43.20 Adjustment disorder, unspecified (principal); N17.9 Acute kidney failure, unspecified; K92.0 Hematemesis; F43.12 Post-traumatic stress disorder, chronic; N18.9 Chronic kidney disease, unspecified; Z72.0 Tobacco use; E86.0 Dehydration
CPT/HCPCS: 76775; 80048; 80053; 80061; 80307; 80320; 83036; 84443; 85025; 96372; J1630; J2060

== ENCOUNTER 2016-07-21 12:02 | Emergency (ER) | payer OTHER ==
[~2016-07-21] VITALS: Ht 172.7 cm; Wt 87.0 kg
[~2016-07-21 12:02] MED LIST: CLON.5 PO; ESCI20TA PO; ESZO3TAB4 PO; PROP10TA6 PO
[2016-07-21 12:08] VITALS: BP 134/87; PULSE 89; RESP 14; TEMP 98.7; O2SAT 100
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
== END 2016-07-21 13:20 | disposition home or self-care (01) ==
LOC: NEPB 12:02
DX: R20.0 Anesthesia of skin (principal)
CPT/HCPCS: 99282